=== PATIENT | male | born 1965 | race Caucasian/White ===

== ENCOUNTER 2021-04-15 12:36 | Emergency (ER) | payer SELFPAY ==
[~2021-04-15] VITALS: Ht 177.8 cm; Wt 77.1 kg
[2021-04-15 13:04] VITALS: BP_SYST 154
[2021-04-15] MEDS ORDERED: FAMO40TA7 PO (13:26)
[2021-04-15 13:32] VITALS: BP_SYST 137
== END 2021-04-15 13:32 | disposition home or self-care (01) ==
LOC: SED 12:36
DX: K25.9 Gastric ulcer, unspecified as acute or chronic, without hemorrhage or perforation (principal); I10 Essential (primary) hypertension; E11.9 Type 2 diabetes mellitus without complications; Z79.899 Other long term (current) drug therapy
CPT/HCPCS: 99282